=== PATIENT | female | born 1955 | race Caucasian/White ===

== ENCOUNTER → 2018-10-08 | Outpatient (CLI) | payer BC, OTHER ==
[2018-10-08 10:37] LABS: APTT 30.3 Seconds (24.5-32.8); PROTIME 10.3 Seconds (9.3-11.4)
[2018-10-08 12:01] LABS: CLARITY SLIGHTLY CLOUDY; COLOR AMBER; SOURCE RIGHT THORACENTESIS; TOTAL VOLUME 60 mL
[2018-10-08 12:31] LABS: SOURCE RIGHT THORACENTESIS
[2018-10-08 12:49] LABS: BF NUCLEATED CELLS 185; BF RBC 5856
[2018-10-08 12:53] LABS: BF MACROPHAGE 0; BF NEUTROPHILS 3
[2018-10-10 14:05] LABS: BODY FLUID ALBUMIN 2.9 g/dL (()); BODY FLUID AMYLASE 31 U/L (()); BODY FLUID GLUCOSE 102 mg/dL (()); BODY FLUID LDH 116 IU/L (()); BODY FLUID PROTEIN 4.6 g/dL (())
== END | disposition home or self-care (01) ==
LOC: ULTRA 09:00
PROVIDERS: Internal Medicine Hematology & Oncology
DX: J90 Pleural effusion, not elsewhere classified (principal)

== ENCOUNTER → 2018-10-28 | Outpatient (CLI) | payer BC, OTHER ==
[2018-10-28 12:53] LABS: ABSOLUTE NEUTROPHILS 5.7 thou/uL (1.4-8.2); BASOPHILS 0.8 % (0.0-2.0); EOSINOPHILS 1.2 % (0.0-3.0); HEMATOCRIT 34.4 % (37.0-47.0); HEMOGLOBIN 11.3 gm/dL (12.0-15.0); LYMPHOCYTES 4.9 % (24.0-44.0); MCH 27.9 pg (26.0-34.0); MCHC 32.9 g/dL (28.0-37.0); MCV 84.9 fL (80.0-100.0); MONOCYTES 10.5 % (1.0-8.0); PLATELET COUNT 480 thou/uL (150-400); POLYS 82.6 % (36.0-66.0); RBC 4.06 mil/uL (4.20-5.00); RDW 15.6 % (10.5-14.5); WBC 6.9 thou/uL (4.0-11.0)
[2018-10-28 13:08] LABS: APTT 31.1 Seconds (24.5-32.8); PROTIME 10.4 Seconds (9.3-11.4)
== END | disposition home or self-care (01) ==
LOC: ULTRA 12:11
PROVIDERS: Internal Medicine Hematology & Oncology
DX: J90 Pleural effusion, not elsewhere classified (principal); R06.02 Shortness of breath

== ENCOUNTER → 2018-11-09 | Outpatient (CLI) | payer BC, OTHER ==
[2018-11-09 09:54] LABS: HEMATOCRIT 34.9 % (37.0-47.0); HEMOGLOBIN 11.4 gm/dL (12.0-15.0); MCH 27.8 pg (26.0-34.0); MCHC 32.8 g/dL (28.0-37.0); RBC 4.11 mil/uL (4.20-5.00); RDW 16.8 % (10.5-14.5); WBC 7.5 thou/uL (4.0-11.0)
[2018-11-09 10:09] LABS: CALCIUM 10.8 mg/dL (8.5-10.1); CREATININE 0.7 mg/dL (0.6-1.0); POTASSIUM 4.8 mmol/L (3.5-5.1)
== END | disposition home or self-care (01) ==
LOC: ULTRA 09:11
PROVIDERS: Internal Medicine Hematology & Oncology
DX: J90 Pleural effusion, not elsewhere classified (principal); R06.02 Shortness of breath

== ENCOUNTER → 2018-11-22 | Outpatient (CLI) | payer BC, OTHER ==
[~2018-11-22] MED LIST: ASPIR 8181 MG PO; BENZONATATE200 MG PO; CLARITIN10 MG PO; CYMBALTA30 MG PO; DEXAMETHASONE4 MG PO; LASIX 40 MG TAB40 M2 PO; LISINOPRIL2.5 MG PO; LOPRESSOR50 MG PO; MAGOX 400400 MG PO; MEGESTROL40 MG/1 M1 PO; OMEPRAZOLE40 MG PO; PHARMACY; SENOKOT8.6 MG; SPIRONOLACTONE25 M1 PO; STOOL SOFTENER100 M1 PO; SYNTHROID75 MCG PO; TYLENOL325 MG PO; VITAMIN B COMP1 EACH PO; VITAMIN B-12500 MCG PO; ZANTAC 150MG T150 MG PO
[2018-11-22 13:26] LABS: HEMOGLOBIN 10.1 gm/dL (12.0-15.0); MCH 28.4 pg (26.0-34.0); MCHC 33.6 g/dL (28.0-37.0); MCV 84.4 fL (80.0-100.0); PLATELET COUNT 422 thou/uL (150-400); RBC 3.56 mil/uL (4.20-5.00); WBC 11.2 thou/uL (4.0-11.0)
[2018-11-22 13:33] LABS: CALCIUM 9.9 mg/dL (8.5-10.1); CREATININE 0.6 mg/dL (0.6-1.0); POTASSIUM 3.8 mmol/L (3.5-5.1)
[2018-11-22 13:38] LABS: PROTIME 10.2 Seconds (9.3-11.4)
[2018-11-22 13:43] LABS: ABSOLUTE NEUTROPHILS 10.2 thou/uL (1.4-8.2); PLATELET ESTIMATE NORMAL
== END | disposition home or self-care (01) ==
LOC: ULTRA 11:44
PROVIDERS: Internal Medicine Hematology & Oncology
DX: J90 Pleural effusion, not elsewhere classified (principal); I10 Essential (primary) hypertension; J44.9 Chronic obstructive pulmonary disease, unspecified; Z98.890 Other specified postprocedural states; Z79.899 Other long term (current) drug therapy; Z85.118 Personal history of other malignant neoplasm of bronchus and lung

== ENCOUNTER 2018-11-29 13:12 | Inpatient (IN) | payer BC, OTHER ==
[~2018-11-29] VITALS: Ht 149.9 cm; Wt 40.6 kg
--- NOTE | ~2018-11-29 | HC ---
[facility] [place] [address] CONSULTATION Name: SHAHZAD DUNCAN Room #: 212-P ADM IN M.R.#: [id number] Admission: 11/29/18 ������������������ Attend Phys: Tavon Abel MD Discharge: ������������������ Date of : 57 Report #: [id number] THIS REPORT FOR: //name// CC: Arturo Grady MD REASON FOR CONSULTATION: Metastatic lung cancer. HISTORY OF PRESENT ILLNESS: First admit for patient here. We do not have outside records. 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 She has been too weak to take therapy. They have considered experimental therapy, but she is probably too weak for that. Has in the recent several months or weeks been having right-sided thoracentesis every 2 weeks, most recently they did only about half the amount and she got more short of breath than usual. Here, a CAT scan shows the bilateral pleural effusions, the adrenal mets and other lymph nodes that the patient seemed to have known about. She has poor appetite, just not very ____ gets sickish feeling which she eats too much. Also, has cough and feeling short of breath, was using Humibid at home. Pretty much sleeps in a bed, spends most of the day in a chair, with assistance goes to the bathroom. In the past, they have talked about palliative care and hospice, but had not gone to the hospice because she wanted to do the thoracentesis. We also talked about DNR status. She is currently a full code. Discussed with her that I would strongly encourage her to consider being a DNI, that we keep doing the same aggressive measures to try to help her get stronger, but if she does cross the line and get too sick, I would suggest we not do intubation or CPR. At this time, she is not willing to make that decision to choose DNR, but we will talk to her family. Family member/close friend, caregiver was present for all this discussion. PAST MEDICAL HISTORY: Appears to be notable for the stage IV lung cancer, also history of hypothyroidism, also history of pleural effusions with thoracentesis, also poor appetite. SOCIAL HISTORY: Not a recent smoker. No alcohol. FAMILY HISTORY OF CANCER: Noncontributory at this time. MEDICATIONS: At this time include pantoprazole 20 daily, dexamethasone 4 daily, lisinopril 2.5 daily, duloxetine 30 daily, levothyroxine 75 mcg daily, megestrol 200 mg b.i.d., docusate 100 b.i.d., aspirin 81 daily, p.r.n. Tylenol, p.r.n. MiraLax, p.r.n. nitroglycerin. PHYSICAL EXAMINATION: GENERAL: The patient appears her stated age, is very chronically ill-appearing [address] [place] [address] CONSULTATION Name: SHAHZAD DUNCAN Room #: 212-P [facility] IN M.R.#: [id number] Admission: 11/29/18 ������������������ Attend Phys: Tavon Abel MD Discharge: ������������������ Date of : 57 Report #: [id number] female who has had difficulty answering some of the complex questions. MOOD: She is somewhat quiet and able to answer questions. NEUROLOGIC: She is alert and appears to be oriented, moving all extremities. HEENT: Oropharynx may have a dry mucus tongue, does not appear to have any thrush. LUNGS: Has decreased more on the left than the right, has poor breath sounds in both sides, slight wheezes. HEART: Appears to be slightly tachycardic. LYMPHATICS: No enlarged lymph nodes in the supraclavicular, cervical, axillary or inguinal region. ABDOMEN: Scaphoid, nontender. EXTREMITIES: Without clubbing or cyanosis. LABORATORY DATA: Has a BUN of 13, creatinine of 0.5. Coags normal. White count 8.6, hemoglobin 10, platelets 301. TSH 11.6. ASSESSMENT AND PLAN: 1. Reported history of stage IV lung cancer to the brain, lymph node and adrenal metastases. I would agree with previous assessments ____ the patient is too weak to consider therapy. Reportedly, most recently, she had been on Keytruda. They had considered research trials, but she is too weak to consider that. They had also talked about hospice, but they wanted to keep doing thoracentesis. Continue supportive measures, but I do not believe the patient is strong enough to consider any active therapy standard or otherwise at this time. 2. DNR status as above, talk with the patient and family and would strongly consider changing to DNI. Could also consider consult with Dr. Maier regarding palliative care discussion and goals of care. 3. History of brain metastasis. Continue dexamethasone. 4. Shortness of air, slightly better after right thoracentesis, 1200 mL. Talked with nurse. She will check with the primary team about perhaps adding aerosol to help with her air movement. Had been on Humibid at home, would consider restarting this. 5. Pleural effusion, had right-sided pleural effusion, there is also one in the left. Could consider left-sided thoracentesis or evaluation for or consulting Pulmonary. 6. Weakness. Consider P and T evaluate and treat. 7. Hypothyroid, replace. 8. Prognosis very poor. We will follow with you. ��������������������������������������������� ���������������������������������������� By: ��������������������������������������������� 0925 0706 Nelson Reynoso MD /nt
--- NOTE | ~2018-11-29 | HC ---
[facility] [place] [address] CONSULTATION Name: SHAHZAD DUNCAN Room #: 212-P ADM IN M.R.#: [id number] Admission: 11/29/18 ������������������ Attend Phys: Tavon Abel MD Discharge: ������������������ Date of : 57 Report #: [id number] THIS REPORT FOR: //name// CC: Arturo Abel PALLIATIVE CARE CONSULTATION REQUESTING PHYSICIAN: Antwon Putnam M.D. CHIEF COMPLAINT: Lung cancer with metastasis. HISTORY OF PRESENT ILLNESS: The patient is a 63-year-old female who presented to [facility] on 11/29/2018 with increased shortness of breath. She has a history of recurrent large pleural effusions. She has had bilateral thoracentesis performed, it sounds like every 2 to now every one week. She has had significant decline over the last year, has been pursuing chemotherapy treatment for bronchogenic carcinoma with known metastasis to adrenal glands, also abdominal, sacral and intracranial metastases. The patient did have a CTA, which showed a large right pleural effusion and then also left pleural effusion noted. She did have significant adrenal masses, consistent with metastasis and mesenteric and retroperitoneal adenopathy. Recently, she had been on Keytruda. The patient at this point in time reports that her symptoms are well managed of the pain. She states that she does not have continued shortness of breath. She has received thoracentesis x 2 while in the hospital. Apparent discussion has been had with her sister. One of her sisters is a former hospice nurse. Discussion was with regards to palliative care, which she has discussed with physicians prior to this. She had not been, at that time, ready to commit to not having thoracentesis done; however, may not have been aware that she could continue to have this performed if she desired with palliative care. Additionally, she had not changed her code status at this point from full code to DNR and/or to Do Not Intubate. This has been discussed with Dr. Reynoso previously during her most recent consultation in the hospital. PAST MEDICAL HISTORY: Significant for systolic congestive heart failure, EF 35%; hypothyroidism, again a bronchogenic carcinoma with multiple areas of metastasis as per HPI. MEDICATIONS: Toprol, aspirin, Zantac, Mag-Ox, Lasix, duloxetine, lisinopril, omeprazole, dexamethasone, levothyroxine and Aldactone. ALLERGIES: STATINS. SOCIAL HISTORY: She is currently full code. Sister is present for my interview, who was a former hospice nurse. Also, [place] [address] CONSULTATION Name: SHAHZAD DUNCAN Room #: [facility] IN M.R.#: [id number] Admission: 11/29/18 ������������������ Attend Phys: Tavon Abel MD Discharge: ������������������ Date of : 57 Report #: [id number] FAMILY HISTORY: Noncontributory to her current diagnosis. PAST SURGICAL HISTORY: Unknown at this time, did not discuss. REVIEW OF SYSTEMS: GENERAL: Has had significant weight loss overall, denies any current feelings of fevers. HEENT: Denies any visual changes currently. RESPIRATORY: Does report shortness of breath, which is what prompted her to be admitted; however, she is currently stable with nasal cannula per her report. CHEST: Denies any chest pain. Denies palpitations. ABDOMEN: Does report diffuse abdominal pain; however, it is well managed with current medication. PHYSICAL EXAMINATION: VITAL SIGNS: Temperature 36.6, pulse 117, respirations 16, blood pressure 95/65 and 95% on nasal cannula. GENERAL: The patient appears to be alert. She is at least oriented to self. I do have some difficulty getting some of the responses from her at this time. HEENT: No scleral icterus. No conjunctival injection. CARDIOVASCULAR: Tachycardic, but regular rhythm. RESPIRATORY: She has some diffuse rales noted. She is not tachypneic. No apparent respiratory distress. No accessory muscle use. ABDOMEN: She does have some mild distention, but no exquisite tenderness currently. LABORATORY DATA: Hemoglobin 9.5, creatinine 0.6. ASSESSMENT AND PLAN: 1. Lung cancer with metastasis bronchogenic carcinoma. At this point in time, she is not felt to be an excellent candidate for any further therapy with regards to chemotherapy or any other additional therapy for curative measures of this cancerous process. She does have stage IV cancer. I have discussed this with her and her family extensively that the likely scenario that we would be pursuing would be more of a palliative approach regardless of whether we were pursuing hospice in addition. I did discuss the options for recurrent thoracentesis versus PleurX drain placement potentially versus non-repeated drainage and rather symptom management. The patient was considering this at this time once we discussed with family. I did discuss code status extensively, including intubation and CPR and the risks and benefits of those things. I did discuss that they would be highly unlikely to benefit her overall medical status at this time. I did spend approximately 40 minutes in discussion of advanced care planning today. I did discuss the possibility of placement either at home with hospice or possibly in an inpatient hospice setting or alternatives to these, I have provided my contact information and I will revisit tomorrow afternoon if decision is not made prior to this. Family was amenable to this as [facility] [place] [address] CONSULTATION Name: SHAHZAD DUNCAN Room #: 212-P [facility] IN M.R.#: [id number] Admission: 11/29/18 ������������������ Attend Phys: Tavon Abel MD Discharge: ������������������ Date of : 57 Report #: [id number] well as the patient. 2. Pleural effusions, again I did discuss as above. 3. Severe protein-calorie malnutrition. Again, this has an influence as per previous. 4. Systolic congestive heart failure. At this point in time, it appears to be relatively stable. Again, we will defer to primary care team. Thank you very much for this consultation. Please contact me for any questions regarding this consult. ��������������������������������������������� ���������������������������������������� By: ��������������������������������������������� [address] DO /nt
[2018-11-29 13:13] VITALS: BP 92/69
[2018-11-29 14:27] LABS: ABSOLUTE NEUTROPHILS 8.3 thou/uL (1.4-8.2); BASOPHILS 0.2 % (0.0-2.0); EOSINOPHILS 0.3 % (0.0-3.0); HEMATOCRIT 32.2 % (37.0-47.0); HEMOGLOBIN 10.8 gm/dL (12.0-15.0); MCH 28.7 pg (26.0-34.0); MCHC 33.5 g/dL (28.0-37.0); MCV 85.6 fL (80.0-100.0); MONOCYTES 5.8 % (1.0-8.0); PLATELET COUNT 329 thou/uL (150-400); POLYS 91.7 % (36.0-66.0); RBC 3.77 mil/uL (4.20-5.00); RDW 18.3 % (10.5-14.5)
[2018-11-29 14:38] LABS: ANION GAP 6 mmol/L (7-16); BUN 16 mg/dL (7-18); CALCIUM 10.3 mg/dL (8.5-10.1); CHLORIDE 98 mmol/L (98-107); CO2 30 mmol/L (21-32); CREATININE 0.5 mg/dL (0.6-1.0); GLUCOSE 102 mg/dL (74-106); SODIUM 134 mmol/L (136-145)
[2018-11-29 14:48] LABS: ALBUMIN 2.4 g/dL (3.4-5.0); SGOT 16 U/L (15-37); SGPT 15 U/L (30-65); TOTAL BILIRUBIN 0.3 mg/dL (<0.1-1.0); TOTAL PROTEIN 5.3 g/dL (6.4-8.2); TROPONIN-I <0.06 ng/mL (<0.06)
--- NOTE | 2018-11-29 14:53 | EKG ---
[place] [address] [facility] [address] ELECTROCARDIOGRAM REPORT Name: SHAHZAD DUNCAN Room #: [facility]#: [id number] ������������������ Admission: 11/29/18 ������������������ Attend Phys: Discharge: ������������������ Date of : 57 Report #: [id number] ����������������������������������������������������������������� [id number] THIS REPORT FOR: //name// [facility] ED Test Date: 2018-11-29 Test Time: 14:09:47 Pat Name: SHAHZAD DUNCAN Department: Room: Gender: F Crew Leader/Control Room Operator: JESSENIAYajaira : 1955 Requested By: Leonid Soria Order Number: [id number] MD: Demian Floyd Measurements Intervals [place] Rate: 122 P: 81 OK: 138 QRS: 2 QRSD: 91 T: 97 QT: 334 QTc: 476 Interpretive Statements Sinus tachycardia Low voltage, extremity leads Consider anterior infarct Nonspecific T abnormalities, lateral leads No previous ECG available for comparison Electronically Signed On 11-29-2018 14:53:44 CDT by Demian Floyd [email or web address] ��������������������������������������������� <ELECTRONICALLY SIGNED> ���������������������������������������� By: Demian Floyd MD ��������������������������������������������� 11/29/18 1453 1409 1409 MD ELOISE Ryan
[2018-11-29] MEDS ORDERED: ASPIR 8181 MG PO (15:09)
[2018-11-29] MEDS ORDERED: CLARITIN10 MG PO (15:10)
[2018-11-29] MEDS ORDERED: ZANTAC 150MG T150 MG PO (15:11)
[2018-11-29] MEDS ORDERED: STOOL SOFTENER100 M1 PO (15:13)
[2018-11-29] MEDS ORDERED: SENOKOT8.6 MG (15:15)
[2018-11-29] MEDS ORDERED: MAGOX 400400 MG PO (15:15)
[2018-11-29] MEDS ORDERED: VITAMIN B COMP1 EACH PO (15:16)
[2018-11-29] MEDS ORDERED: VITAMIN B-12500 MCG PO (15:17)
[2018-11-29 15:20] LABS: APTT 25.9 Seconds (24.5-32.8)
[2018-11-29] MEDS ORDERED: CYMBALTA30 MG PO (15:21)
[2018-11-29] MEDS ORDERED: LASIX 40 MG TAB40 M2 PO (15:21)
[2018-11-29] MEDS ORDERED: LISINOPRIL2.5 MG PO (15:22)
[2018-11-29] MEDS ORDERED: LOPRESSOR50 MG PO (15:26)
[2018-11-29] MEDS ORDERED: OMEPRAZOLE40 MG PO (15:26)
[2018-11-29] MEDS ORDERED: DEXAMETHASONE4 MG PO (15:27)
[2018-11-29] MEDS ORDERED: SPIRONOLACTONE25 M1 PO (15:28)
[2018-11-29] MEDS ORDERED: SYNTHROID75 MCG PO (15:28)
[2018-11-29] MEDS ORDERED: TYLENOL325 MG PO (15:29)
[2018-11-29] MEDS ORDERED: MEGESTROL40 MG/1 M1 PO (15:33)
[2018-11-29] MEDS ORDERED: BENZONATATE200 MG PO (15:33)
[2018-11-29] MEDS ORDERED: PHARMACY (15:38)
[2018-11-29 15:42] LABS: ANISOCYTOSIS 2+; PLATELET ESTIMATE NORMAL
[2018-11-29 17:01] VITALS: BP 107/71
[2018-11-29 17:31] VITALS: BP 102/70
[2018-11-29 17:50] VITALS: BP 102/80
[2018-11-29 19:30] VITALS: BP 187/77
--- NOTE | 2018-11-29 19:36 | NUR ---
PT TO THE UNIT FROM THE ER. PT ORINETTED TO ROOM AND BEDSPACE - ASSESSMENT CHARTED - NO CO'S OF PAIN OR NAUSEA. ATE ONLY A FEW BITES OF DINNER. PT PLEASANTLY CONFUSED. THORACENTISIS SITE ON THE RITE C/D/I. SON AT THE BEDSIDE. NO CO'S AT THE PRESENT TIME.
[2018-11-29 19:57] VITALS: BP 98/68
[2018-11-30] VITALS (11 sets, daily range): BP systolic 89–144; BP diastolic 63–85
--- NOTE | 2018-11-30 03:38 | NUR ---
VSS. ASSESSMENT CHARTED. PT ALERT BUT CONFUSED AT TIMES. SON AT BEDSIDE. PT DENIES PAIN, SOA, DIZZINESS, N/V. PT REFUSING TURNS. OFFERED FOOD WANTED YOGURT BUT DID NOT EAT, SMALL SIPS OF WATER. IV FLUIDS PER EMAR. HR ELEVATED, BP LOW, FIELD CROP FARMWORKER AWARE NO NEW ORDERS. PLAN FOR AM LABS. WILL CONTINUE TO MONITOR AND WITH POC.
[2018-11-30 04:14] LABS: ABSOLUTE NEUTROPHILS 7.9 thou/uL (1.4-8.2); BASOPHILS 0.2 % (0.0-2.0); EOSINOPHILS 0.2 % (0.0-3.0); LYMPHOCYTES 1.3 % (24.0-44.0); MCH 28.5 pg (26.0-34.0); MCHC 33.4 g/dL (28.0-37.0); MCV 85.6 fL (80.0-100.0); MONOCYTES 6.9 % (1.0-8.0); PLATELET COUNT 301 thou/uL (150-400); POLYS 91.4 % (36.0-66.0); RBC 3.51 mil/uL (4.20-5.00); RDW 18.4 % (10.5-14.5); WBC 8.6 thou/uL (4.0-11.0)
[2018-11-30 04:20] LABS: CALCIUM 9.7 mg/dL (8.5-10.1); CREATININE 0.5 mg/dL (0.6-1.0); MAGNESIUM 1.8 mg/dL (1.8-2.4); POTASSIUM 3.5 mmol/L (3.5-5.1)
--- NOTE | 2018-11-30 14:19 | NUR ---
PT'S HEART RATE IN 140s THIS MORNING AND BLOOD PRESSURE LOW. CALLED DR. DE LUNA AND 500ML BOLUS NS ORDERED. PT ASYMPTOMATIC BUT NO CHANGE IN BLOOD PRESSURE OR HEART RATE. PT STATED SHE HAD PAIN 8/10 IN BONE OF UPPER RIGHT LEG. MILL OPERATOR ORDERED HYDROCODONE AND ATIVAN WHICH WAS GIVEN AT 1230. AT 1315 NO CHANGE IN PAIN LEVEL OR HEART RATE/BP. DR. DE LUNA AND KYLEE NGOC AWARE. PT WAS TAKEN TO ULTRA SOUND FOR THORACENTESIS.
--- NOTE | 2018-11-30 17:00 | NUR ---
PT HAD NOT URINATED TODAY, HEAD GOLF PROFESSIONAL REPORTED PT HAD NOT URINATED DURING NIGHT. MEG GROSSMAN ORDERED A BLADDER SCAN. THE RESULTS SHOWED 730 ML OF URINE IN THE BLADDER. MEG GROSSMAN WAS CONTACTED AT 1630 AND A RAHMAN WAS ORDERED. RAHMAN WAS INSERTED AT 1650 AND DRAINED BLADDER OF URINE. WILL CONTINUE TO MONITOR PT URINE OUTPUT.
--- NOTE | 2018-11-30 19:37 | NUR ---
ASSUMED CARE OF PT AT 0700. PT A&OX4, SLOW TO RESPOND. PT PROCESSING DIAGNOSIS RELATING TO METASTATIC CANCER. FAMILY DISCUSSING AND PROCESSING. DR. KHOURY CONSULTED. PT HAD HIGH HEART RATE IN 140'S UNTIL AFTER THOROCENTESIS, THEN HEART RATE IN 120'S WHICH IS BASELINE. PT HAD PAIN PARTIALLY CONTROLLED WITH HYROCODONE (BONE PAIN IN LEFT UPPER LEG). PT'S ANXIETY TREATED WITH ATIVAN. RAHMAN PLACED FOR RETENTION AND PT STARTED ON [id number]. WILL CONT WITH POC.
[2018-12-01 00:07] VITALS: BP 86/47
[2018-12-01 01:57] VITALS: BP 86/47
--- NOTE | 2018-12-01 03:18 | NUR ---
VSS. ASSESSMENT CHARTED. SPOKE WITH FAMILY AND PATIENT BASELINE SBP 90'S, HR 115-120'S. PT DENIES PAIN, BUT REMINDED PRN PAIN OR ANXIETY MEDS AVAILABLE WHEN NEEDED. PT IS MORE ALERT AND TALKITIVE TONIGHT COMPARED TO PREVIOUS NIGHT, SHE ALSO HAS MORE OF AN APPITITE- X1 ENSURE DRANK. A&0X3. Q2 TURNS TOLERATED- PT SCOOTED HERSELF UP IN BED. DRILL PRESS TENDER NOTIFIED OF IV FLUID RATE, ORDERS GIVEN NS CHANGED PER EMAR. WILL CONTINUE TO MONITOR AND WITH POC.
[2018-12-01 04:06] LABS: HEMATOCRIT 28.5 % (37.0-47.0); HEMOGLOBIN 9.5 gm/dL (12.0-15.0); MCHC 33.5 g/dL (28.0-37.0); MCV 86.4 fL (80.0-100.0); RBC 3.29 mil/uL (4.20-5.00); RDW 18.8 % (10.5-14.5); WBC 8.2 thou/uL (4.0-11.0)
[2018-12-01 04:12] LABS: CALCIUM 9.7 mg/dL (8.5-10.1); CREATININE 0.6 mg/dL (0.6-1.0); POTASSIUM 3.9 mmol/L (3.5-5.1)
[2018-12-01 04:23] VITALS: BP 93/58
[2018-12-01 08:34] VITALS: BP 95/60
--- NOTE | 2018-12-01 10:39 | NUR ---
patient admits with lung cancer rec thoracenthesis yesterday and on outpatient basis. Sp with brother Ravin Morgan and sister Lore. Patient resides with sister Macey and Brother in law. Patient has her own home, however due to care needs she is staying with her sister while family memebers assist with care. Patient with twin sister Lynda, Brother Ravin, sister Lore and Macey. Sister Lore reports she is retail field merchandiser and per her family known as "grim reaper." She reports her and Macey do not get along as Lore has stated she is too weak for family to cont care in home. She reports she has almost fallen while she assists her to bathroom. There are steps to home in bathroom. She reports she feels DNR appropriate and hospice house eval. She has stated to family patient may need ltc as she needs assistance to commode and care with bathing. Lore reports Macey wants to cont with tx for patient. She wants to cont care in her home as she has promised in past to patient she will keep her at home and care for her. Lore reports patient has a son in his 20s. He resides in patients home. He apparently has mental health issues and patient has voiced to Lore she is afraid of what will happen to her son. Lore reports patient was a single mother and raised son on her own. She reports he does not work and recently has been medicated for mental health. She reports sister Lynda also with mental health issues and brother Ravin caught in between 2 sisters Lore and Macey regarding care of sister. THere is no DPOA. No DNR. Lore reports her sister Macey will want to cont outpatient thoracenthesis. Lore reports she has said if she doesnt cont these she will fill with fluid and smother. Lore reports she has tried to sp with sister Macey regarding hospice and comfort care but coming from her it is not being heard. Lore reports she believes phys need to speak realisticly to sister Macey of her care. Dr Plaza consulted.
--- NOTE | 2018-12-01 17:23 | NUR ---
ASSUMED CARE OF PT AT 0700. PT ALERT ORIENTED TO SELF, SITUATION, MONTH. PT DISCUSSED CONDITION WITH DR. KHOURY AND DOES NOT SEEM TO UNDERSTAND HER PROGNOSIS. FAMILY HAVING TENSION AGREEING ON PT CARE. CASE MANAGEMENT INVOLVED. FAMILY VISITING TODAY. PT HAS PAIN PARTIALLY CONTROLLED WITH PAIN MED. DR. AMARO CHANGED FREQUENCY OF HYDROCONDONE FROM Q6 TO Q4. PT ON Q2 TURNS. HEART RATE IN 130's BLOOD PRESSURE LOW. WILL CONTINUE WITH POC.
[2018-12-01 19:52] VITALS: BP 97/58
[2018-12-02 04:23] VITALS: BP 111/76
--- NOTE | 2018-12-02 07:21 | NUR ---
ASSUME CARE 1900. VITALS STABLE. CONSTANT PAIN NOTED. HYDROCODONE FOR BREAKTHROUGH PAIN. PT LOOKS PALE AND VERY WEAK. ASSESSMENT CHARTED. POOR PROGRESSION WITH POC. MORE DISCUSSIONS NEEDED WITH FAMILY TO BETTER UNDERSTAND PT PROGNOSIS. POSSIBLE DISCHARGE TO HOSPICE WITH DRAIANGE OR D/C WITH MEDS FOR PAIN MANAGEMENT AND COMFORT. WILL CONTINUE TO MONITOR AND FOLLOW WITH POC
--- NOTE | 2018-12-02 14:22 | NUR ---
Hospital Nursing Assistant visited with the pt, her sister Lynda and sister Macey at bedside. The attending also visited with them. Discussed options for hospice at home or hospice house and the referral process. Discussed code status and pt is undecided. Pt was receptive to conversation but not ready to make a decision. Sister Macey has a call out to the pt's oncologist to get her recommendations regarding pleurax cath and hospice options. Macey indicates that she will encourage the pt's son Brodie to come up to the hospital again today to talk with the pt about her wishes. The family is exploring hiring private duty to supplement 24hr care at home as well as wanting to check benefits for coverage at [facility]. They report that the pt's brother Praveen has dpoa for finances but uncertain if it covers medical decisions. They are all supportive of the pt and want her to be able to make as many decisions for herself as possible. Dr. Plaza has also spoken with her sister Macey today. Questions regarding hospice care, services, and benefits answered. Support provided. Referral for benefit check faxed to Hospice intake. Their liason is available tomorrow if the pt and family wish to have an info visit or eval for the house. Will follow.
--- NOTE | 2018-12-02 16:50 | NUR ---
ASSESSMENT CHARTED - MEDS PER OCT - GIVEN PAIN MEDS X 1 DOSE - PATIENT HAS BEEN SLEEPING ON AND OFF THROUGHOUT THE DAY. NIKITA ONLY SMALL AMOUNTS OF DIET AND FLUIDS. HAS SPENT THE DAY RESTING IN BED - PT HAS BEEN TURNED. FAMILY INTO SEE AND SPOKE WITH DOCTOR BOONE AND WITH SWS TODAY IN REGARDS TO PLANS FOR FUTURE CARE. SON AT THE BEDSIDE THIS AFTERNOON. NO CO'S AT THE PRESENT TIME.
[2018-12-02 20:49] VITALS: BP 117/88
[2018-12-03 06:07] VITALS: BP 111/66
--- NOTE | 2018-12-03 07:46 | NUR ---
ASSESSMENT CHARTED. PATIENT RESTED IN BED DURING SHIFT. C/O PAIN ONCE DURING SHIFT 03/26. MEDICATED. PLAN OF CARE IS TO FINALIZE PLANS FOR GOING HOME WITH PALLIATIVE CARE OR HOSPICE OR STILL A FULL CODE.
[2018-12-03 08:00] VITALS: BP 122/71
[2018-12-03 12:00] VITALS: BP 101/65
--- NOTE | 2018-12-03 13:56 | NUR ---
PT. POSS. DC TO [facility] OVER WEEKEND IF DC FAX DC ORDERS/SUMMARY TO [facility] [phone] AND CALL REPORT TO [phone] AND FAX [facility] AMB. FORM TO [phone] AND CALL ABOUT 15 MIN. AFTER FAX SENT [phone] TO SET UP TRANSPORT TIME.
--- NOTE | 2018-12-03 14:15 | NUR ---
Harvest Contractor met with the pt, her sisters Lynda Choudhury and Lore at bedside this am along with the attending. He discussed code status with the pt. Pt agreeable to DNR. Family supportive of her decision. Pt signed outside the hospital dnr form this afternoon. Pt agreeable to pleurax cath placement as well as [facility] eval. The hospice liason was here and visited with the pt and above mentioned family as well as her brother. Family is touring this afternoon. Pt accepted for admission to the hospice house once her drains are in place. Timeframe pending IR schedule. Pt and family agreeable to hospice house with ongoing discussion about possiblely arranging 24 private duty care at her sister's home if the family is able to work this out and she stabalizes. Hospice house will call the unit if they have a bed this evening or tomorrow morning. Outside the hospital DNR form is on the chart as well as the [facility] form for amublance transport. Care team updated. Emotional support provided to pt and family.
[2018-12-03 16:00] VITALS: BP 129/93
--- NOTE | 2018-12-03 17:44 | NUR ---
ASSESSMENT CHARTED - MEDS PER OCT - GIVEN HYDROCODONE AND FENANYL FOR PAIN WITH MOD RELIEF. NIKITA ONLY SMALL AMOUNTS OF DIET AND FLUIDS - IV FLUIDS CONTINUE ORDERED . PATIENT TURNED IN BED Q 2-3 HOURS. FAMILY IN SPEAK WITH DOCTOR AND SWS SERVICE TODAY - PATIENT IS NOW A NO CODE AND WILL GO TO HOSPICE HOUSE. WANTED TO PLACE PLURAL TUBED TODAY IN INT RADIOLOGY - THESE UNABLE TO BE PLACED TODAY - ONE CAN BE PLACED THURSDAY AND THE OTHER ON THURSDAY ACCORDING TO IR. WILL CONTINUE TO MONITOR PATIENT OVER THE WEEKEND AND PATIENT WILL GO TO HOSPICE HOUSE WHEN TUBES PLACED. PT RESTING IN BED WITH EYES CLOSED AT THE PRESENT TIME.
[2018-12-03 20:12] VITALS: BP 127/97
--- NOTE | 2018-12-04 05:31 | NUR ---
ASSUMED OT CARE AT 1900 WITH BEDSIDE REPORT TAKEN, PT IS ALERT BUT DROWSY AND CONFUSED, EASILY AROUSABLE. NO SIGN OF DISTRESS NOTED IN PT. PT IS ON 2L NC, AND VITAL SIGN STABLE. HEART RATE CONTINUES TO BE ELEVATED THROUGHOUT THE NIGHT. PHYISICIAN AWARE. SCHEDULED MEDS ADMINISTERED TO PT. PT TOLERATED PO INTAKE. PT IS SLEEPS COMFORTABLE THROUGHOUT THE NIGHT. DENIES ANY FURTHER NEEDS AT THIS TIME. CONTINUE NURSING POC.
[2018-12-04 05:36] VITALS: BP 141/95
[2018-12-04 08:17] VITALS: BP 133/89
[2018-12-04 12:25] VITALS: BP 130/89
[2018-12-04 17:13] VITALS: BP 112/78
[2018-12-04 19:40] VITALS: BP 92/66
--- NOTE | 2018-12-04 19:57 | NUR ---
ASSUMED CARE OF PT AT SHIFT CHANGE. ASSESSMENT CHARTED. MEDS GIVEN PER OCT. PT DROWSY, FORGETFUL. RESTED MOST OF DAY, SLOW TO RESPOND. VSS, C/O PAIN- MANAGED WITH PO AND IV PAIN MEDS. O2 AT 2L THIS AM, PT SOB, O2 INCREASED TO 5L. PHYSICIAN NOTIFIED OF INCREASED SOB, IR WAS CALLED FOR PLEURAL TUBE PLACEMENT. TUBE CONNECTED TO BAG NOT DRAINING PROPERLY, NOTIFIED. IR SENT IR NURSES TO DRAIN FLUID FROM TUBE. 450 OUT, AWARE. AFTER FLUID MANUALLY DRAINED FROM TUBE, PT SHOWED MUCH RELIEF AND SOB SIGNIFICANTLY DECREASED. PT DID NOT HAVE ADEQUATE APPETITE, ENCOURAGED TO DRINK ENSURES WITH MEALS. FAMILY UPDATED AND AWARE OF ALL CARES THIS SHIFT. PT RESTING COMFORTABLY AT THIS TIME WITH FAMILY AT BEDSIDE. NO S/SX OF ANY DISTRESS NOTED. PLAN IS FOR PT TO DC TO HOSPICE HOUSE. CONTINUING TO MONITOR. CONT TO MONITOR AND FOLLOW POC.
[2018-12-04 21:58] VITALS: BP 98/70
--- NOTE | 2018-12-05 04:30 | NUR ---
ASSESSMENT CHARTED. PATIENT TOO DROWSY TO TAKE ORAL MEDS. SPOKE WITH GARCIASHEETING PULLER ORDER TO DOCUMENT NOT GIVEN, SEDATE. PATIENT RECEIVED PLUREX DRAIN ACCESS TODAY AND 450ML WAS TAKEN OFF. PATIENT BREATHING EASIER THAN PRIOR TO PROCEDURE. PLAN OF CARE IS FOR PATIENT TO TRANSFER TO HOSPICE HOUSE DURING THE DAY.
[2018-12-05 04:55] VITALS: BP 105/78
[2018-12-05 08:00] VITALS: BP 102/68
[2018-12-05 15:40] VITALS: BP 102/68
--- NOTE | 2018-12-05 19:43 | NUR ---
ASSUMED CARE OF PT AT 0700. PT ORIENTED TO SELF AND LETHARGIC THROUGH MOST OF THE DAY. PT ONLY WAS ABLE TO CONSUME ENSURE AND SOME SIPS OF WATER. ONLY ONE PRESCRIBED MEDICATION WAS GIVEN PO (METOPROLOL) DUE TO SINUS TACHYCARDIA MAINTAINED BY PT. PT REPORTED CONTINUOUS HEAD PAIN AND WAS GIVEN FENTANYL PRESCRIBED PRN FOR PAIN. PT HAD DRESSING CHANGE AT INCISION NSITE ON LOWER RIGHT LOBE. PT VOIDED A TOTAL OF 300 ML OF DARK YELLOW URINE. FAMILY EXPRESSED CONCERNED OVER BREATHING OF PT. FAMILY EDUCATED ON PLEURAL CATHETER AND TREATMENT BY DR. AMARO AND FAMILY IS ALWAYS AT BEDSIDE.PT IS ON 5L NC WITH O2 SATS AT 92 AND 93. WILL CONTINUE TO MONITOR PT BREATHING AND PAIN.
[2018-12-05 19:46] VITALS: BP 130/99
--- NOTE | 2018-12-05 20:10 | NUR ---
AGREE WITH NOTES AND ASSESSMENTS FOR THIS PT BY STUDENT NURSE DAVID. SADAF IVAN
--- NOTE | 2018-12-06 02:03 | NUR ---
ASSESSMENT CHARTED. PATIENT RESTING, OPENED EYES AND ANSWERED QUESTIONS AT START OF SHIFT. WAS AWAKE ENOUGH TO SWALLOW A FEW MEDS. C/O HEADACHE. TODAY DR INCREASED HER METOPROLOL DOSE, BROUGHT HER HEART RATE DOWN INTO THE 100'S. PLAN OF CARE IS TO TRANSFER TO HOSPICE HOUSE TODAY. PER DOCTOR, THEY ARE ONLY PUTTING IN 1 PLUREX DRAIN TO PREVENT POSSIBLE A CHEST COLLAPSE.
[2018-12-06 04:21] VITALS: BP 105/71
[2018-12-06 08:23] VITALS: BP 104/73
[2018-12-06] MEDS ORDERED: ATIVAN0.5 MG PO (12:27)
[2018-12-06] MEDS ORDERED: IPRATROPIU0.2 MG/1 M INH (12:28)
[2018-12-06] MEDS ORDERED: FENTANYL 0.50 MCG/ML IV PUSH (12:28)
[2018-12-06] MEDS ORDERED: LEVALBUTER0.63 MG/3 INH (12:28)
[2018-12-06] MEDS ORDERED: MUCINEX DM ER1 EAC1 PO (12:28)
--- NOTE | 2018-12-06 13:53 | NUR ---
patient rec pleurx cath. She is stable to dc to hospice house today. Sp with Lori at [facility] who reports they are accepting and have a bed avail. She request afternoon transport. [facility] for 1430. Son at bedside and agreeable to plan. Called and sp with sister Macey to alert of plan. Macey reports she will notify other family of time of transport. RN has number for report no further needs.
--- NOTE | 2018-12-06 15:09 | NUR ---
PT TRANSFERRED AT THIS TIME. FAMILY PRESENT. SON HEMA AND NEPHEW LOREN. BOTH REPORTED THAT THEY WOULD BE AT FACILITY UPON PT ARRIVAL. REPORT CALLED TO [facility] NURSE. PT DROWSY BUT EASILY AROUSABLE. VSS. GRIMACES AND INTERMITTENLY REPORTS PAIN. PAIN MANAGED WITH FENTANYL AND HYDROMORPHONE. TUNRED PT Q2 HRS AND PRN. PLEURAL TUBE ACCESSED AND DRAINED APPROX 500ML SEROSANG FLUID. RAHMAN PATENT. IVs LEFT IN PLACE PER RECEIVING NURSE REQUEST. TELE OFF. FAMILY DENIES QUESTIONS OR CONCERNS REGARDING POC. [facility]ING[facility] PROVIDED TRANSPORTATION.
== END 2018-12-06 14:57 | disposition hospice, inpatient (51) | DRG 180 ==
LOC: ER 13:12 → EROBS 17:01 → 2N 17:01
PROVIDERS: Emergency Medicine; Nurse Practitioner; ADMIT Hospitalist
PROC: 0W993ZZ Drainage of Right Pleural Cavity, Percutaneous Approach (ICD-10-PCS; 2018-11-29)
PROC: 0W9B3ZZ Drainage of Left Pleural Cavity, Percutaneous Approach (ICD-10-PCS; principal; 2018-11-30)
DX: C34.90 Malignant neoplasm of unspecified part of unspecified bronchus or lung (principal); E43 Unspecified severe protein-calorie malnutrition; J96.21 Acute and chronic respiratory failure with hypoxia; J96.22 Acute and chronic respiratory failure with hypercapnia; C79.31 Secondary malignant neoplasm of brain; C79.89 Secondary malignant neoplasm of other specified sites; C79.51 Secondary malignant neoplasm of bone; J91.8 Pleural effusion in other conditions classified elsewhere; I50.20 Unspecified systolic (congestive) heart failure; Z68.1 Body mass index [BMI] 19.9 or less, adult; Z51.5 Encounter for palliative care; D64.9 Anemia, unspecified; E03.9 Hypothyroidism, unspecified; R62.7 Adult failure to thrive; R00.0 Tachycardia, unspecified; F32.9 Major depressive disorder, single episode, unspecified; Z88.8 Allergy status to other drugs, medicaments and biological substances; Z79.1 Long term (current) use of non-steroidal anti-inflammatories (NSAID); Z79.899 Other long term (current) drug therapy; Z79.82 Long term (current) use of aspirin
CPT/HCPCS: 10081